=== PATIENT | female | born 1960 | race Caucasian/White ===

== ENCOUNTER 2018-10-15 23:32 | Emergency (ER) | payer BC, OTHER ==
[~2018-10-15] VITALS: Ht 154.9 cm; Wt 49.0 kg
[2018-10-16] MEDS ORDERED: IOHEXOL 300 MG/ML 100ML BOTTLE IJ ONE (00:46)
[2018-10-16 00:53] LABS: Basophils # (auto) 0.1 uL; Basophils % (auto) 0.6 % (0.0-2.0); Eosinophils # (auto) 0.2 uL; Eosinophils % (auto) 1.6 % (0.0-7.0); Hematocrit 41.8 % (36.0-46.0); Lymphocytes # (auto) 1.2 uL; Mean Corpuscular Hemoglobin 31.4 pg (28.0-32.0); Mean Corpuscular Hgb Conc. 33.5 g/dL (32.0-36.0); Mean Corpuscular Volume 93.8 fL (80.0-100.0); Monocytes # (auto) 0.8 uL; Monocytes % (auto) 6.3 % (0.0-12.0); Neutrophils # (auto) 9.9 uL; Neutrophils % (auto) 81.5 % (37.0-80.0); Platelet Count (auto) 331 10^3/uL (140-450); Red Blood Cells 4.46 10^6/uL (4.0-5.20); Red Cell Distribution Width 13.8 % (11.8-14.3); White Blood Cell 12.2 10^3/uL (4.4-10.8)
[2018-10-16 01:11] LABS: INR < 0.93 (0.9-1.15); Partial Thromboplastin Time 25.3 sec (23.64-32.05)
[2018-10-16 01:12] LABS: Amylase 62 U/L (25-115); Anion Gap 8 (5-15); BUN/Creatinine Ratio 12.7; Blood Urea Nitrogen 10 mg/dL (7-18); Calcium 8.6 mg/dL (8.5-10.1); Carbon Dioxide 28 mmol/L (21-32); Chloride 104 mmol/L (98-107); GFR African American 95 mL/min; GFR Non-African American 79 mL/min; Glucose 116 mg/dL (74-106); Lipase 108 U/L (73-393); Potassium 3.5 mmol/L (3.5-5.1); Sodium 140 mmol/L (136-145)
[2018-10-16 02:07] LABS: Urine Bacteria FEW /hpf (None Seen); Urine Blood 2+ /uL (Negative); Urine Mucus FEW (None Seen); Urine Specific Gravity 1.027 (1.001-1.035); Urine WBC 1349 /hpf (0 - 5); Urine WBC Clumps PRESENT /hpf (None Seen)
[2018-10-16 03:00] VITALS: BP 127/92
[2018-10-16] MEDS ORDERED: CIPROFLOXACIN HCL 500 MG TAB PO ONE (03:30)
[2018-10-16] MEDS ORDERED: metroNIDAZOLE 500 MG TAB PO ONE (03:30)
== END 2018-10-16 04:19 | disposition home or self-care (01) ==
LOC: EDBD 23:32 → ER 23:37
DX: K52.9 Noninfective gastroenteritis and colitis, unspecified (principal); N39.0 Urinary tract infection, site not specified; I12.9 Hypertensive chronic kidney disease with stage 1 through stage 4 chronic kidney disease, or unspecified chronic kidney disease; N18.9 Chronic kidney disease, unspecified; F12.90 Cannabis use, unspecified, uncomplicated
CPT/HCPCS: 36415; 70450; 74177; 80048; 81001; 82150; 83690; 84484; 85025; 85610; 85730; 93005; 99284; Q9967